=== PATIENT | male | born 1955 | race Caucasian/White ===

== ENCOUNTER 2024-08-15 10:45 | Outpatient (RCR) | payer MEDICARE, SELFPAY ==
[2024-07-11 10:50] VITALS: BMI 24.6
[2024-07-11 10:51] VITALS: BMI 24.6
[2024-08-15 10:50] VITALS: BMI 25.0
== END 2024-11-28 07:26 | disposition home or self-care (01) ==
LOC: ANHDMC 10:45
PROVIDERS: Visit Provider Internal Medicine
DX: E11.9 Type 2 diabetes mellitus without complications (principal); Z71.3 Dietary counseling and surveillance
CPT/HCPCS: 97802; 97803

== ENCOUNTER 2024-11-29 10:47 | Outpatient (RCR) | payer MEDICARE, SELFPAY ==
[2024-11-29 10:50] VITALS: BMI 24.8
[2024-11-29 10:51] VITALS: BMI 24.8
== END 2025-02-18 11:42 | disposition home or self-care (01) ==
LOC: ANHDMC 10:47
PROVIDERS: PCP Nurse Practitioner; Visit Provider Internal Medicine
DX: E11.9 Type 2 diabetes mellitus without complications (principal); Z71.3 Dietary counseling and surveillance
CPT/HCPCS: 97803

== ENCOUNTER 2024-12-26 14:30 | Outpatient (RCR) | payer MEDICARE, SELFPAY ==
[2024-10-10 10:54] VITALS: BMI 24.4
[2024-10-10 11:00] VITALS: BMI 24.4
== END 2025-01-07 12:08 | disposition home or self-care (01) ==
LOC: ANHDMC 14:30
PROVIDERS: Visit Provider Internal Medicine
DX: E11.65 Type 2 diabetes mellitus with hyperglycemia (principal); Z71.3 Dietary counseling and surveillance; Z71.89 Other specified counseling
CPT/HCPCS: 97803; G0108; G0109

== ENCOUNTER 2025-03-21 10:09 | Outpatient (RCR) | payer MEDICARE, SELFPAY | END 2025-03-21 16:06 | disposition home or self-care (01) | LOC: ANHDMC 10:09 | PROVIDERS: PCP Nurse Practitioner; Visit Provider Internal Medicine | DX: E11.9 Type 2 diabetes mellitus without complications (principal); Z71.89 Other specified counseling | CPT/HCPCS: G0109 ==